=== PATIENT | female | born 1960 | race Caucasian/White ===

== ENCOUNTER → 2018-06-12 13:41 | Outpatient (CLI) | payer MEDICARE ==
[2011-06-24 06:54] VITALS: BMI 46.1
== END | disposition home or self-care (01) ==
LOC: D.MRI 13:41
PROVIDERS: ATTEND Orthopaedic Surgery
DX: S83.271A Complex tear of lateral meniscus, current injury, right knee, initial encounter (principal)

== ENCOUNTER 2018-11-13 21:02 | Emergency (ER) | payer MEDICARE ==
[~2018-11-13] VITALS: Ht 160 cm; Wt 100.0 kg
[2018-11-13 21:21] VITALS: BP 126/60; Ht 160 cm; Wt 100.0 kg
[2018-11-13] MEDS ORDERED: NEURONTIN600 MG PO (21:25)
[2018-11-13] MEDS ORDERED: CELEXA20 MG (21:25)
[2018-11-13] MEDS ORDERED: NITROQUICK0.4 MG (21:26)
[2018-11-13] MEDS ORDERED: OMEPRAZOLE20 M1 (21:26)
[2018-11-13] MEDS ORDERED: ADVIL200 MG (21:26)
== END 2018-11-13 22:24 | disposition home or self-care (01) ==
LOC: D.ER 21:02
DX: S76.812A Strain of other specified muscles, fascia and tendons at thigh level, left thigh, initial encounter (principal); X58.XXXA Exposure to other specified factors, initial encounter; F17.200 Nicotine dependence, unspecified, uncomplicated; K21.9 Gastro-esophageal reflux disease without esophagitis